=== PATIENT | male | born 1955 | race Caucasian/White ===

== ENCOUNTER 2018-12-22 10:05 | Emergency (ER) | payer BC ==
[2018-12-22 10:18] VITALS: BMI 26.6
[2018-12-22 10:28] VITALS: O2SAT 98
--- NOTE | 2018-12-22 11:21 | ED PDOC ---
HPI: Male Pain Time Seen by Provider: 12/22/18 10:34 Chief Complaint (Nursing): Male Genitourinary History Per: Patient, [employer] ([facility] #[id number]) Additional Complaint(s): Pt. states for the past 3 weeks he's noticed blood mixed in with his sperm. Reports blood has progressively increased in quantity. Pt. states he is sexually active with 1 partner. Also reports having urinary frequency. Denies fever, dysuria, hematuria, back pain, flank pain, hx of previous STD's. Past Medical History Reviewed: Historical Data, Nursing Documentation, Vital Signs Vital Signs: Last Vital Signs Temp 98.7 F 12/22/18 10:18 Pulse 50 L 12/22/18 10:18 Resp 18 12/22/18 10:18 BP 150/77 12/22/18 10:18 Pulse Ox 98 12/22/18 10:26 - Surgical History Surgical History: Appendectomy - Family History Family History: States: No Known Family Hx - Allergies Allergies/Adverse Reactions: Allergies Allergy/AdvReac Type Severity Reaction Status Date / Time No Known Allergies Allergy Verified 12/22/18 10:26 Review of Systems ROS Statement: Except As Marked, All Systems Reviewed And Found Negative Physical Exam - Physical Exam Appears: Positive for: Well, Non-toxic, No Acute Distress Skin: Positive for: Normal Color, Warm. Negative for: Rash Eye Exam: Positive for: Normal appearance. Negative for: Conjunctival injection Gastrointestinal/Abdominal: Positive for: Normal Exam, Soft. Negative for: Tenderness Male Genital Exam: Positive for: normal genitalia, other (no inguinal LAD). Negative for: lesions, scrotum tenderness (R), scrotum tenderness (L), testicular tenderness (R), testicular tenderness (L), urethral discharge Back: Negative for: L CVA Tenderness, R CVA Tenderness Neurologic/Psych: Positive for: Alert, Oriented (x3) - ECG O2 Sat by Pulse Oximetry: 98 - Progress ED Course And Treament: UA, urine C&S, GC/chlamydia cultures sent. [facility] #[id number] Pt. informed of UA results and pending cultures. Informed of plan and to inform partners of pending studies. Rocephin 250mg IM, zithromax 1gm PO ordered. Advised to f/u with PMD or Dr. Gomez (urologist) for further evaluation but is to return to ED immediately if symptoms worsen. Pt. verbalized correct understanding of f/u and care. Disposition - Clinical Impression Clinical Impression: Hematospermia - Patient ED Disposition Is Patient to be Admitted: No - Disposition Referrals: Yoan Gomez Jr., MD [Staff Provider] - Disposition: Routine/Home Disposition Time: 12:10 Condition: STABLE Additional Instructions: SLY HWANG, thank you for letting us take care of you today. Your provider was Laila Chester MD and you were treated for MALE GENITOURINARY . The emergency medical care you received today was directed at your acute symptoms. If you were prescribed any medication, please fill it and take as directed. It may take several days for your symptoms to resolve. Return to the Emergency Department if your symptoms worsen, do not improve, or if you have any other problems. Please contact your doctor or call one of the physicians/clinics you have been referred to that are listed on the Patient Visit Information form that is included in your discharge packet. Bring any paperwork you were given at discharge with you along with any medications you are taking to your follow up visit. Our treatment cannot replace ongoing medical care by a primary care provider outside of the emergency department. Thank you for allowing the [facility] team to be part of your care today. If you had an X-Ray or CT scan: A Radiologist will review the ED reading if any change in treatment is needed we will contact you. If you had a blood, urine, or wound culture: It will take several days for the results, if any change in treatment is needed we will contact you. If you had an STI test: It will take 48 hours for the results. Please call after 1 week if you have not heard back. Instructions: Urine Culture
[2018-12-22 11:27] LABS: URINE BILIRUBIN NEGATIVE (NEGATIVE); URINE BLOOD NEGATIVE (NEGATIVE); URINE CLARITY CLEAR (Clear); URINE COLOR YELLOW (YELLOW); URINE GLUCOSE (UA) NEG (NEGATIVE); URINE LEUKOCYTE ESTERASE NEG Leu/uL (Negative); URINE PROTEIN NEGATIVE (NEGATIVE); URINE UROBILINOGEN 0.2-1.0 mg/dL (0.2-1.0)
[2018-12-22] MEDS ORDERED: cefTRIAXone (Rocephin) 250 mg Inj IM STA (12:14)
[2018-12-22] MEDS ORDERED: cefTRIAXone (Rocephin) 250 mg Inj ONE (12:41)
[2018-12-22 13:18] VITALS: BP 132/74; PULSE 62; RESP 19; TEMP 98.6
== END 2018-12-22 13:18 | disposition home or self-care (01) ==
LOC: H.ER 10:05
DX: R36.1 Hematospermia (principal)
CPT/HCPCS: 81003; 87086; 87491; 87591; 96372; 99283; J0696